=== PATIENT | female | born 1965 | race Caucasian/White ===

== ENCOUNTER 2021-06-14 13:38 | Emergency (ER) | payer BC ==
[~2021-06-14] VITALS: Ht 157.5 cm; Wt 108.0 kg
[2021-06-14 13:56] VITALS: BP 125/78
--- NOTE | 2021-06-14 14:01 | NUR ---
PT SENT TO LOBBY
[2021-06-14] MEDS ORDERED: ACET-8386 PO (14:45)
[2021-06-14] MEDS ORDERED: CEPH-588 PO (14:45)
[2021-06-14] MEDS ORDERED: NAPR-54 PO (14:45)
--- NOTE | 2021-06-14 15:24 | NUR ---
PT SEEN AND D/C BY NORRIS KWOK, NO NURSING INTERVENTIONS PROVIDED
--- NOTE | 2021-06-14 15:24 | NUR ---
Patient discharged with v/s stable. Written and verbal after care instructions ABOUT HIDRADENITIS SUPPURATIVA given and explained. Patient alert, oriented and verbalized understanding of instructions. Ambulatory with steady gait. All questions addressed prior to discharge. ID band removed. Patient advised to follow up with PMD. Rx of NORCO 5-325MG, KEFLEX, AND NAPROXEN given. Patient educated on indication of medication including possible reaction and side effects. Opportunity to ask questions provided and answered.
[2021-06-16] MEDS ORDERED: NAPR-54 PO (11:08)
[2021-06-16] MEDS ORDERED: CEPH-588 PO (11:08)
[2021-06-16] MEDS ORDERED: ACET-8386 PO (11:08)
== END 2021-06-14 15:24 | disposition home or self-care (01) ==
LOC: MED 13:38
DX: L02.411 Cutaneous abscess of right axilla (principal); Z90.49 Acquired absence of other specified parts of digestive tract; Z98.890 Other specified postprocedural states; Z79.899 Other long term (current) drug therapy
CPT/HCPCS: 99283